=== PATIENT | female | born 1960 | race Caucasian/White ===

== ENCOUNTER 2018-04-11 16:52 | Emergency (ER) | payer OTHER ==
--- NOTE | 2018-04-11 17:58 | Emergency Department Record ---
History of Present Illness - General Chief complaint: Eye Problem Stated complaint: RT EYE SWELLING/IRRITATION Time Seen by Provider: 04/11/18 17:45 Source: Patient, Family Mode of Arrival: Ambulatory Limitations: No limitations - History of Present Illness Initial comments: 57 yo female presents with a right eye lid pain and swelling. This has been gradually building for about a week. She now has a tender nodule that is fluctuant mid upper lid with visible pus just under the surface. No vision changes. No fever. 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 No pain with eye movement. She has been doing warm compresses but the area has not drained. MD chief complaint: Eye pain, Eye redness Onset/Timin -: Days(s) Onset Description: Sudden Location: Right eye Place: Home If Injury: None Eye Symptoms: Blurry vision, Foreign body sensation, Pain, Redness Severity: Mild Severity scale (1-10): 3 If Pain, Quality: Aching Consistency: Constant Associated Symptoms: None Treatments Prior to Arrival: None - Related Data Visual acuity (L) = 20/: 40 Visual acuity (R) = 20/: 50 With correction: No Previous Rx's Medication Instructions Recorded Albuterol Sulfate [Proair Hfa] 1 - 2 puff IH .EVERY 4-6 HOURS PRN 07/23/16 #1 inhaler Furosemide [Lasix] 20 mg PO DAILY #30 tablet 07/23/16 Ipratropium/Albuterol [Duoneb] 3 ml IH Q4H #30 ampul.neb 07/23/16 Lisinopril [Zestril] 2.5 mg PO DAILY #30 tablet 07/23/16 Cephalexin [Keflex] 500 mg PO QID #40 cap 04/11/18 Hydrocodone/APAP 5/325Mg [[place] 1 each PO Q8H #9 tab 04/11/18 5Mg/325Mg] Sulfamethoxazole/Trimethoprim 1 each PO BID #14 tablet 04/11/18 [Bactrim Ds Tablet] Allergies Allergy/AdvReac Type Severity Reaction Status Date / Time codeine [CODEINE] Allergy Unknown PT UNSURE Verified 04/11/18 17:17 OF REACTION codeine phosphate Allergy Unknown PT UNSURE Verified 04/11/18 17:17 [From TYLENOL-CODEINE] OF REACTION latex [LATEX] Allergy Unknown PT UNSURE Verified 04/11/18 17:17 OF REACTION methylprednisolone sodium AdvReac Unknown burning Verified 04/11/18 17:17 succinate feeling in [From SOLU-MEDROL] legs Travel Screening - Travel/Exposure Within Last 30 Days Have you traveled within the last 30 days?: No Review of Systems Constitutional: Denies: Chills, Fever, Malaise, Weakness Eyes: Reports: Eye pain. Denies: Eye discharge, Photophobia, Vision change ENT: Denies: Congestion, Throat pain Respiratory: Denies: Cough Cardiovascular: Denies: Chest pain, Syncope Endocrine: Denies: Fatigue Gastrointestinal: Denies: Abdominal pain, Diarrhea, Nausea, Vomiting Genitourinary: Denies: Dysuria, Urgency Musculoskeletal: Denies: Arthralgia, Back pain, Myalgia Skin: Reports: As per HPI, Rash. Denies: Bruising, Change in color Neurological: Denies: Headache Psychiatric: Denies: Anxiety Hematological/Lymphatic: Denies: Easy bleeding, Easy bruising Past Medical History - SOCIAL HISTORY Smoking Status: Current every day smoker Alcohol Use: None Drug Use: None - RESPIRATORY Hx Respiratory Disorders: Yes Hx Asthma: Yes Hx Bronchitis: Yes Hx COPD: Yes Hx Dyspnea: Yes Hx Pneumonia: Yes - CARDIOVASCULAR Hx Cardio Disorders: No - NEURO Hx Neuro Disorders: No - GI Hx GI Disorders: No - Hx Genitourinary Disorders: No - ENDOCRINE Hx Endocrine Disorders: No - MUSCULOSKELETAL Hx Musculoskeletal Disorders: Yes - PSYCH Hx Psych Problems: Yes Hx Anxiety: Yes Hx Depression: Yes - HEMATOLOGY/ONCOLOGY Hx Hematology/Oncology Disorders: Yes Hx Cancer: Yes (Uterine) Family Medical History Any Significant Family History?: Yes Hx Cancer: Grandparents Hx Diabetes: Mother Hx HTN: Mother, Grandparents Physical Exam - General General Appearance: Alert, Oriented x3, Cooperative, No acute distress Limitations: No limitations - Head Head exam: Normal inspection Image of Face/Head: 1 - mild upper lid erythema with a central stye that appears to have come to a head - Eye Eye exam: PERRL, EOMI, Periorbital swelling, Periorbital tenderness (upper lid) . negative: Normal appearance, Conjunctival injection With correction: No Image of Eyes: 1 - upper lid tender fluctuant area - ENT ENT exam: Normal exam Ear exam: Normal external inspection Nasal Exam: Normal inspection Mouth exam: Normal external inspection - Neck Neck exam: Normal inspection - Rectal Rectal exam: Deferred - exam: Deferred - Neurological Neurological exam: Alert, Normal gait, Oriented X3. negative: Altered - Psychiatric Psychiatric exam: Normal affect, Normal mood - Skin Skin exam: Erythema Course Vital Signs 04/11/18 17:08 Temperature 97.8 F Pulse Rate 107 H Respiratory 20 Rate Blood Pressure 91/82 Pulse Ox 97 - Reevaluation(s) Reevaluation #1: The examination is consistent with a stye very near rupture. Pus can be visualized as the stye is coming to a head but it has not yet fully ruptured. I recommended cleaning, gently open with 11 blade and culture the pus. She agrees and requests drainage. Prep with Betadine 11 Blade 1-2mm very superficial incision with immediate drainage It was easily pressured until cleared of pus and only blood. Culture obtained Tolerated well PO and topical antibiotics provided. She was instructed to continue the draining if possible. We discussed home care and reasons to return to the ED 04/11/18 18:10 Disposition Disposition: Discharge Clinical Impression: Stye Disposition: Home, Self-Care Condition: (1) Good Instructions: Jonnie (ED) Additional Instructions: Continue warm compresses every 12 hours Try to continue the drainage Be seen if fever, worse or any new concerns Take the antibiotics as prescribed Clean the lid daily as well. Call your doctor tomorrow for a recheck this week Prescriptions: Cephalexin [Keflex] 500 mg PO QID #40 cap Hydrocodone/APAP 5/325Mg [[place] 5Mg/325Mg] 1 each PO Q8H #9 tab Sulfamethoxazole/Trimethoprim [Bactrim Ds Tablet] 1 each PO BID #14 tablet Forms: Patient Portal Access Time of Disposition: 18:14 Quality - Quality Measures Quality Measures: N/A - Blood Pressure Screening Does Patient Have Any of the Following: Active Dx of HTN Blood Pressure Classification: Pre-Hypertensive BP Reading Systolic Measurement: 91 Diastolic Measurement: 82 Screening for High Blood Pressure: Patient Exclusion, Hx of HTN [G9744] Pre-Hypertensive Follow-up Interventions: Referral to alternative/primary care provider.
[2018-04-11] MEDS: POLYMYXIN B SULF/TRIMETHOPRIM 10ML BTL OPTH ONE (18:15)
[2018-04-11] MEDS: HYDROCODONE/APAP 5/325MG TABLET PO ONE (18:16)
[2018-04-11] MEDS: TMP/SMZ 160MG/800MG TAB PO ONE (18:16)
[2018-04-11] MEDS: CEFTRIAXONE 1 GRAM VIAL IM ONE (18:16)
[2018-04-11] MEDS: PROPARACAINE HCL OPTH 15ML BTL OPTH ONE (18:16)
== END 2018-04-11 18:52 | disposition home or self-care (01) ==
LOC: ER 16:52
DX: H00.024 Hordeolum internum left upper eyelid (principal); F17.210 Nicotine dependence, cigarettes, uncomplicated
CPT/HCPCS: 67700; 96372; 99283

== ENCOUNTER 2019-10-27 19:14 | Inpatient (IN) | payer BC ==
--- NOTE | 2019-10-27 19:34 | Emergency Department Record ---
History of Present Illness - General Chief Complaint: Abdominal Pain Stated Complaint: ABD PAINS Time Seen by Provider: 10/27/19 19:33 Source: Patient Mode of Arrival: Ambulatory Limitations: No limitations - History of Present Illness Initial Comments: 59 yo female presents with abdominal pain for about the last 6 months. She reports it seemed to have worsened about 3 months ago and then again a month ago. She has had a month of diarrhea. She has pain over the entire abdomen. No fever. She has nausea. She has vomited but rarely. The diarrhea is non bloody. She did see her doctor and was told it was diverticulitis. PCP is Dr Anaid RODARTE Complaint: Abdominal pain Location: Diffuse Radiation: Other (Diffuse) Migration to: Other (Diffuse) Quality: Aching, Sharp Consistency: Constant Improves With: Nothing Worsens With: Eating Context: Other Associated Symptoms: Anorexia, Diarrhea, Vomiting (rarely) - Related Data Previous Rx's Medication Instructions Recorded Albuterol Sulfate [Proair Hfa] 1 - 2 puff IH .EVERY 4-6 HOURS PRN 07/23/16 #1 inhaler Furosemide [Lasix] 20 mg PO DAILY #30 tablet 07/23/16 Ipratropium/Albuterol [Duoneb] 3 ml IH Q4H #30 ampul.neb 07/23/16 Lisinopril [Zestril] 2.5 mg PO DAILY #30 tablet 07/23/16 Ciprofloxacin HCl [Cipro] 500 mg PO Q12HR #14 tablet 10/27/19 Hydrocodone/Acetaminophen [[place] 1 each PO Q6H #8 tablet 10/27/19 5-325 Tablet] Metronidazole [Flagyl] 500 mg PO Q8H #30 tablet 10/27/19 Allergies Allergy/AdvReac Type Severity Reaction Status Date / Time codeine [CODEINE] Allergy Unknown PT UNSURE Verified 10/27/19 19:39 OF REACTION codeine phosphate Allergy Unknown PT UNSURE Verified 10/27/19 19:39 [From TYLENOL-CODEINE] OF REACTION latex [LATEX] Allergy Unknown PT UNSURE Verified 10/27/19 19:39 OF REACTION methylprednisolone sodium AdvReac Unknown burning Verified 10/27/19 19:39 succinate feeling in [From SOLU-MEDROL] legs Review of Systems Constitutional: Denies: Chills, Fever, Malaise, Weakness Eyes: Denies: Eye discharge ENT: Denies: Congestion, Throat pain Respiratory: Denies: Cough, Dyspnea, Hemoptysis, Wheezes Cardiovascular: Denies: Chest pain, Palpitations, Syncope Endocrine: Denies: Fatigue Gastrointestinal: Reports: Abdominal pain, Diarrhea, Nausea, Vomiting. Denies: Constipation, Hematemesis, Hematochezia, Melena Genitourinary: Denies: Dysuria, Urgency Musculoskeletal: Denies: Arthralgia, Back pain, Myalgia Skin: Denies: Bruising, Change in color, Rash Neurological: Denies: Headache Psychiatric: Denies: Anxiety Hematological/Lymphatic: Denies: Easy bleeding, Easy bruising Past Medical History - SOCIAL HISTORY Smoking Status: Current every day smoker Drug Use: None - RESPIRATORY Hx Respiratory Disorders: Yes Hx Asthma: Yes Hx Bronchitis: Yes Hx COPD: Yes Hx Dyspnea: Yes Hx Pneumonia: Yes - CARDIOVASCULAR Hx Cardio Disorders: No - NEURO Hx Neuro Disorders: No - GI Hx GI Disorders: No - Hx Genitourinary Disorders: No - ENDOCRINE Hx Endocrine Disorders: No - MUSCULOSKELETAL Hx Musculoskeletal Disorders: Yes - PSYCH Hx Psych Problems: Yes Hx Anxiety: Yes Hx Depression: Yes - HEMATOLOGY/ONCOLOGY Hx Hematology/Oncology Disorders: Yes Hx Cancer: Yes (Uterine) Family Medical History Hx Cancer: Grandparents Hx Diabetes: Mother Hx HTN: Mother, Grandparents Physical Exam - General General Appearance: Alert, Oriented x3, Cooperative, No acute distress Limitations: No limitations - Head Head exam: Atraumatic, Normal inspection - Eye Eye exam: Normal appearance, PERRL. negative: Conjunctival injection, Scleral icterus - ENT ENT exam: Normal exam, Mucous membranes moist Ear exam: Normal external inspection Nasal Exam: Normal inspection Mouth exam: Normal external inspection - Neck Neck exam: Normal inspection - Respiratory Respiratory exam: Normal lung sounds bilaterally. negative: Respiratory distress - Cardiovascular Cardiovascular Exam: Regular rate, Normal rhythm, Normal heart sounds - GI/Abdominal GI/Abdominal exam: Soft, Normal bowel sounds, Tenderness, Other (The abdomen is obese but very soft, she has some diffuse non specific tenderness). negative: Distended, Guarding, Rebound, Rigid - Rectal Rectal exam: Deferred - exam: Deferred - Extremities Extremities exam: Normal inspection. negative: Pedal edema, Tenderness - Back Back exam: Denies: CVA tenderness (R), CVA tenderness (L) - Neurological Neurological exam: Alert, Oriented X3 - Psychiatric Psychiatric exam: Normal affect, Normal mood - Skin Skin exam: Dry, Intact, Normal color, Warm Course - Reevaluation(s) Reevaluation #1: 10/27/19 20:49 The CBC was reviewed No acute changes The CMP demonstrated CR of 1.2 and Glucose of 249. 10/27/19 21:[address] was reviewed with the patient. She has mild diverticulitis of the sigmoid without and abscess or other complications. She is afebrile, normal labs, but she is vomiting and not tolerating oral treatment. She will be admitted for IVF and medications. Medical Decision Making - Lab Data Result diagrams: 10/27/19 19:55 10/27/19 19:55 Disposition Disposition: Admit Clinical Impression: Diverticulitis Diarrhea Qualifiers: Diarrhea type: unspecified type Qualified Code(s): R19.7 - Diarrhea, unspecified Abdominal pain Qualifiers: Abdominal location: unspecified location Qualified Code(s): R10.9 - Unspecified abdominal pain Disposition: Home, Self-Care Decision to Admit: Admit from ER Decision to Admit Date: 10/27/19 Decision to Admit Time: 22:09 Condition: (2) Stable Instructions: Diverticulitis (ED) Additional Instructions: Review this ER visit and the tests performed with your family doctor Call your doctor for the next available follow up appointment Return to the ER for a recheck immediately if worse, any new concerns or questions Take the prescriptions provided as directed Prescriptions: Ciprofloxacin HCl [Cipro] 500 mg PO Q12HR #14 tablet Metronidazole [Flagyl] 500 mg PO Q8H #30 tablet Hydrocodone/Acetaminophen [[place] 5-325 Tablet] 1 each PO Q6H #8 tablet Forms: Patient Portal Access Time of Disposition: 21:51 Quality - Quality Measures Quality Measures: N/A - Blood Pressure Screening Does Patient Have Any of the Following: Active Dx of HTN Blood Pressure Classification: Pre-Hypertensive BP Reading Systolic Measurement: 117 Diastolic Measurement: 80 Screening for High Blood Pressure: Patient Exclusion, Hx of HTN [G9744] Pre-Hypertensive Follow-up Interventions: Referral to alternative/primary care provider.
[2019-10-27] MEDS ORDERED: MORPHINE SULFATE 5 MG/ML VIAL IVP ONE (19:45)
[2019-10-27] MEDS ORDERED: 0.9 % SODIUM CHLORIDE 1,000 ML BAG IV ONE (19:45)
[2019-10-27] MEDS ORDERED: ACETAMINOPHEN 1,000 MG/100 ML BTL IVPB ONE (19:45)
[2019-10-27] MEDS ORDERED: ONDANSETRON HCL IV 4 MG/2 ML VIAL IVP ONE ×2 (19:45→21:59)
[2019-10-27 20:12] LABS: ABSOLUTE NEUTROPHIL COUNT 6.76; BASO % 0.1 % (0-6); EOS % 2.4 % (0-6); GRAN % 68.9 % (47-80); HEMATOCRIT 43.5 % (35.0-47.0); HEMOGLOBIN 13.4 gm/dl (11.6-16.0); LYMPH % 21.6 % (16-45); MEAN CELL VOLUME 82.4 fl (81-97); MEAN CORPUSCULAR HEMOGLOBIN 25.4 pg (27-33); MEAN CORPUSCULAR HGB CONC 30.8 g/dl (32-36); MEAN PLATELET VOLUME 9.5 fl (7.4-10.4); PLATELET COUNT 366 K/uL (130-400); RED BLOOD COUNT 5.28 M/uL (3.80-5.40); RED CELL DISTRIBUTION WIDTH 18.3 % (11.5-14.5); WHITE BLOOD COUNT W/O DIFF 9.8 K/uL (4.2-12.2)
[2019-10-27 20:22] LABS: BILIRUBIN,TOTAL < 0.20 mg/dL (0.2-1.0); BLOOD UREA NITROGEN 19 mg/dL (6-20); CREATININE 1.2 mg/dL (0.5-0.9); EST GLOMERULAR FILTRATION RATE 49 mL/min
[2019-10-27 20:23] LABS: LIPASE 17 U/L (13-60)
[2019-10-27 20:25] LABS: GLUCOSE,RANDOM 239 mg/dL (74-109)
[2019-10-27 20:27] LABS: ALT/SGPT 30 U/L (<33); AST/SGOT 24 U/L (10.0-35.0)
[2019-10-27 20:28] LABS: ALB/GLOB RATIO 1.2 (1.1-1.8); ALBUMIN 3.8 g/dL (4.0-5.0); ALKALINE PHOSPHATASE 87 U/L (35-104)
--- NOTE | 2019-10-27 21:38 | CT SCAN REPORT ---
EXAMINATION: CT Abdomen and Pelvis with IV Contrast EXAM DATE: 10/27/2019 8:55 PM TECHNIQUE: CT imaging of the abdomen and pelvis was performed with intravenous contrast. Coronal and sagittal images were reconstructed. IV Contrast: The amount and type of contrast are recorded in the medical record. INDICATION: continued abd pain, hx of diverticulitis COMPARISON: CT abdomen/pelvis September 27, 2019 ENCOUNTER: Not applicable CT ABDOMEN AND PELVIS FINDINGS: Lung Bases: Mild dependent atelectasis. Hepatobiliary: Liver is mildly decreased attenuation diffusely consistent with fatty infiltration. No suspicious liver lesion. The gallbladder has been removed. Surgical clips are seen in the gallbladd er fossa. Pancreas: The pancreas is normal. Spleen: The spleen is not enlarged. Adrenals: The adrenal glands are normal. Kidneys, Ureters, & Bladder: Both kidneys have a normal size and there is no hydronephrosis. Both ur eters have a normal caliber. The urinary bladder is underdistended. Gastrointestinal: The stomach and small bowel are normal with no obstruction or inflammation. The solo endix is not well seen. No evidence of acute appendicitis. Mild to moderate sigmoid diverticulosis w ith mild adjacent strandy inflammation, and sigmoid wall thickening about the proximal sigmoid colon consistent with acute diverticulitis. There is no evidence of abscess. Reproductive Organs: Unremarkable Lymphatic System: There is no adenopathy within the abdomen or pelvis. Vasculature: Normal caliber abdominal aorta. The mesenteric vessels appear unremarkable. Peritoneum: No free fluid, free air, or inflammation Abdominal Wall & Musculoskeletal: No suspicious bone lesions. IMPRESSION: 1. Mild to moderate diverticulosis in the proximal sigmoid colon with wall thickening and mild surrou nding inflammation most consistent with acute diverticulitis. 2. Recommend clinical correlation with appropriate follow-up to exclude other etiologies for wall thi ckening such as neoplasm. 3. No evidence of abscess. Dictated by: Malachi Alvarado MD on 10/27/2019 9:20 PM. .
[2019-10-27] MEDS ORDERED: HYDROCODONE/APAP 5/325MG TABLET PO ONE (21:45)
[2019-10-27] MEDS ORDERED: METRONIDAZOLE 250 MG TABLET PO ONE (21:45)
[2019-10-27] MEDS ORDERED: CIPROFLOXACIN HCL 500 MG TABLET PO ONE (21:45)
[2019-10-27 22:43] LABS: URINE APPEARANCE CLEAR; URINE BILIRUBIN NEGATIVE (NEGATIVE); URINE BLOOD NEGATIVE (NEGATIVE); URINE COLOR YELLOW; URINE GLUCOSE (UA) NEGATIVE (NEGATIVE); URINE KETONE NEGATIVE (NEGATIVE); URINE LEUKOCYTE ESTERASE NEGATIVE (NEGATIVE); URINE NITRITE NEGATIVE (NEGATIVE); URINE PROTEIN NEGATIVE (NEGATIVE); URINE UROBILINOGEN 0.2 E.U./dL (0.20 - 1.00)
[2019-10-27] MEDS ORDERED: 0.9 % SODIUM CHLORIDE 1000ML 1,000 ML IV ONE (22:53)
[2019-10-27] MEDS ORDERED: IPRATROPIUM/ALBUTEROL (0.5MG/3MG) NEB INH PRN (22:53)
[2019-10-27] MEDS ORDERED: MORPHINE SULFATE 5 MG/ML VIAL IVP PRN (22:53)
[2019-10-27] MEDS ORDERED: ALBUTEROL HFA 8 GM INHALER INH PRN ×2 (22:53→23:20)
[2019-10-27] MEDS ORDERED: ONDANSETRON HCL IV 4 MG/2 ML VIAL IVP PRN (22:53)
[2019-10-27] MEDS: CIPROFLOXACIN LACTATE/D5W 400 MG/200 ML BAG IVPB SCH (23:24)
[2019-10-28] MEDS: ACETAMINOPHEN 325 MG TAB PO PRN ×3 (00:28→22:24)
[2019-10-28] MEDS: METRONIDAZOLE IVPB 500 MG/100 ML BAG IVPB SCH ×4 (00:30→23:43)
--- NOTE | 2019-10-28 08:33 | History & Physical ---
History of Present Illness - Date of Service Date of Service for History & Physical: 10/29/19 - History of Present Illness Admitting Diagnosis: Acute sigmoid diverticulitis with vomiting History of Present Illness: 59 yo female presents with abdominal pain for about the last 6 months. She reports it seemed to have worsened about 3 months ago and then again a month ago. She has had a month of diarrhea. She has pain over the entire abdomen. No fever. She has nausea. She has vomited but rarely. The diarrhea is non bloody. She did see her doctor and was told it was diverticulitis and was treated with oral antibiotics on 2 different occasions over the last 3 weeks. She went to her PCP office today to reeval of unresolved diarrhea and abdominal pain, she was advised to go to ER for possible IV antibiotics. She has never had a colonoscopy and reports her PCP wanted her to schedule one due to chronic GI symptoms. CT abdomen/pelvis showed mild sigmoid diverticulitis and was a good candidate for outpatient antibiotic treatment, just before discharge from ED she began vomiting and unable to tolerate PO intake. She will be admitted for IV a ntibiotics, antiemetics and clear liquid diet until she is able to tolerate PO intake, then plan for discharge home for the remainder of PO treatment regimen PCP: Dr Worrell PAST MEDICAL/SURGICAL HISTORY Past Surgical History gallbladder hysterectomy appendectomy PMH - Respiratory Hx Respiratory Disorders Yes Hx Asthma Yes Hx Bronchitis Yes Hx Chronic Obstructive Yes Pulmonary Disease (COPD) Hx Dyspnea Yes Hx Pneumonia Yes PMH - Cardiovascular Hx Cardiovascular Disorders No Hx Hypertension Yes PMH - Neuro Hx Neurological Disorders No PMH - GI Hx Gastrointestinal Disorders No Hx Abdominal Pain Yes Hx Diverticulitis Yes PMH - Hx Genitourinary Disorders No LMP (females 10-50) Unknown Patient No PMH - Endocrine Hx Endocrine Disorders No PMH - Musculoskeletal Hx Musculoskeletal Disorders Yes PMH - Psych Hx Psychiatric Problems Yes Hx Anxiety Yes Hx Depression Yes PMH - Hematology/Oncology Hx Hematology/Oncology Yes Disorders Hx Cancer Yes: Uterine Laboratory Results WBC 9.8 K/uL (4.2-12.2) 10/27/19 19:55 RBC 5.28 M/uL (3.80-5.40) 10/27/19 19:55 Hgb 13.4 gm/dl (11.6-16.0) 10/27/19 19:55 Hct 43.5 % (35.0-47.0) 10/27/19 19:55 MCV 82.4 fl (81-97) 10/27/19 19:55 MCH 25.4 pg (27-33) L 10/27/19 19:55 MCHC 30.8 g/dl (32-36) L 10/27/19 19:55 RDW 18.3 % (11.5-14.5) H 10/27/19 19:55 Plt Count 366 K/uL (130-400) 10/27/19 19:55 MPV 9.5 fl (7.4-10.4) 10/27/19 19:55 Gran % 68.9 % (47-80) 10/27/19 19:55 Lymphocytes % 21.6 % (16-45) 10/27/19 19:55 Monocytes % 7.0 % (0-9) 10/27/19 19:55 Eosinophils % 2.4 % (0-6) 10/27/19 19:55 Basophils % 0.1 % (0-6) 10/27/19 19:55 Absolute Neutrophils 6.76 10/27/19 19:55 Sodium 141 mmol/L (136-145) 10/27/19 19:55 Potassium 3.9 mmol/L (3.4-4.5) 10/27/19 19:55 Chloride 101 mmol/L (98-107) 10/27/19 19:55 Carbon Dioxide 25.0 mmol/L (22-29) 10/27/19 19:55 Anion Gap 15.0 (7-16) 10/27/19 19:55 BUN 19 mg/dL (6-20) 10/27/19 19:55 Creatinine 1.2 mg/dL (0.5-0.9) H 10/27/19 19:55 Estimated GFR 49 mL/min 10/27/19 19:55 Random Glucose 239 mg/dL (74-109) H 10/27/19 19:55 Calcium 9.1 mg/dL (8.6-10.0) 10/27/19 19:55 Total Bilirubin < 0.20 mg/dL (0.2-1.0) L 10/27/19 19:55 AST 24 U/L (10.0-35.0) 10/27/19 19:55 ALT 30 U/L (<33) 10/27/19 19:55 Alkaline Phosphatase 87 U/L (35-104) 10/27/19 19:55 Total Protein 7.0 g/dL (6.6-8.7) 10/27/19 19:55 Albumin 3.8 g/dL (4.0-5.0) L 10/27/19 19:55 Globulin 3.2 gm/dL (1.4-4.8) 10/27/19 19:55 Albumin/Globulin Ratio 1.2 (1.1-1.8) 10/27/19 19:55 Lipase 17 U/L (13-60) 10/27/19 19:55 Urine Color Yellow 10/27/19 22:34 Urine Appearance Clear 10/27/19 22:34 Urine pH 5.5 (5.0-8.0) 10/27/19 22:34 Ur Specific [place] 1.010 (1.002-1.030) 10/27/19 22:34 Urine Protein Negative (NEGATIVE) 10/27/19 22:34 Urine Glucose (UA) Negative (NEGATIVE) 10/27/19 22:34 Urine Ketones Negative (NEGATIVE) 10/27/19 22:34 Urine Blood Negative (NEGATIVE) 10/27/19 22:34 Urine Nitrite Negative (NEGATIVE) 10/27/19 22:34 Urine Bilirubin Negative (NEGATIVE) 10/27/19 22:34 Urine Urobilinogen 0.2 E.U./dL (0.20 - 1.00) 10/27/19 22:34 Ur Leukocyte Esterase Negative (NEGATIVE) 10/27/19 22:34 Stool Occult Blood Cancelled 10/27/19 22:34 Stool for White Cells Cancelled 10/27/19 20:00 Rotavirus Antigen Cancelled 10/27/19 19:40 Stl C.difficile Tox A&B Cancelled 10/27/19 19:40 Cryptosporid parvum Ag Cancelled 10/27/19 19:40 Giardia lamblia Ag Cancelled 10/27/19 19:40 Vital Signs - Last 24 Hrs Temp Pulse Pulse Resp BP BP BP 10/28/19 06:24 97.7 F 86 16 141/48 10/27/19 22:53 97.8 F 87 20 148/89 10/27/19 21:55 95 H 18 126/79 10/27/19 19:40 98.3 F 111 H 24 117/80 Pulse Ox 10/28/19 06:24 96 10/27/19 22:53 94 L 10/27/19 21:55 94 L 10/27/19 19:40 95 Travel Screening - Travel/Exposure Within Last 30 Days Have you traveled within the last 30 days?: No - Travel/Exposure Within Last Year Have you traveled outside the [place] in the last year?: No - Additonal Travel Details Have you been exposed to anyone with a communicable illness?: No - Travel Symptoms Symptom Screening: Diarrhea, Vomiting, Stomach Pain Review of Systems Constitutional: Denies: Chills, Fever, Malaise, Weakness Eyes: Denies: Eye discharge ENT: Denies: Congestion, Throat pain Respiratory: Denies: Cough, Dyspnea, Hemoptysis, Wheezes Cardiovascular: Denies: Chest pain, Palpitations, Syncope Endocrine: Denies: Fatigue Gastrointestinal: Reports: Abdominal pain, Diarrhea, Nausea, Vomiting. Denies: Constipation, Hematemesis, Hematochezia, Melena Genitourinary: Denies: Dysuria, Urgency Musculoskeletal: Denies: Arthralgia, Back pain, Myalgia Skin: Denies: Bruising, Change in color, Rash Neurological: Denies: Headache Psychiatric: Denies: Anxiety Hematological/Lymphatic: Denies: Easy bleeding, Easy bruising Past Medical History - SOCIAL HISTORY Smoking Status: Current every day smoker Alcohol Use: None Drug Use: Occasional Drug Use Detail:: Marijuana - RESPIRATORY Hx Respiratory Disorders: Yes Hx Asthma: Yes Hx Bronchitis: Yes Hx COPD: Yes Hx Dyspnea: Yes Hx Pneumonia: Yes - CARDIOVASCULAR Hx Cardio Disorders: No Hx Hypertension: Yes - NEURO Hx Neuro Disorders: No - GI Hx GI Disorders: No Hx Abdominal Pain: Yes Hx Diverticulitis: Yes - Hx Genitourinary Disorders: No - ENDOCRINE Hx Endocrine Disorders: No - MUSCULOSKELETAL Hx Musculoskeletal Disorders: Yes - PSYCH Hx Psych Problems: Yes Hx Anxiety: Yes Hx Depression: Yes - HEMATOLOGY/ONCOLOGY Hx Hematology/Oncology Disorders: Yes Hx Cancer: Yes (Uterine) Family Medical History Any Significant Family History?: Yes Hx Cancer: Grandparents Hx Diabetes: Mother Hx HTN: Mother, Grandparents H&P Meds/Allergies - Allergies Allergies: Allergies Allergy/AdvReac Type Severity Reaction Status Date / Time codeine [CODEINE] Allergy Unknown PT UNSURE Verified 10/27/19 19:39 OF REACTION codeine phosphate Allergy Unknown PT UNSURE Verified 10/27/19 19:39 [From TYLENOL-CODEINE] OF REACTION latex [LATEX] Allergy Unknown PT UNSURE Verified 10/27/19 19:39 OF REACTION methylprednisolone sodium AdvReac Unknown burning Verified 10/27/19 19:39 succinate feeling in [From SOLU-MEDROL] legs - Home Medications Previous Rx's Medication Instructions Recorded Albuterol Sulfate [Proair Hfa] 1 - 2 puff IH .EVERY 4-6 HOURS PRN 07/23/16 #1 inhaler Furosemide [Lasix] 20 mg PO DAILY #30 tablet 07/23/16 Ipratropium/Albuterol [Duoneb] 3 ml IH Q4H #30 ampul.neb 07/23/16 Lisinopril [Zestril] 2.5 mg PO DAILY #30 tablet 07/23/16 Ciprofloxacin HCl [Cipro] 500 mg PO Q12HR #14 tablet 10/27/19 Hydrocodone/Acetaminophen [[place] 1 each PO Q6H #8 tablet 10/27/19 5-325 Tablet] Metronidazole [Flagyl] 500 mg PO Q8H #30 tablet 10/27/19 - Active Medications Active Medications: Current Medications Acetaminophen (Tylenol 325mg) 650 mg PO Q6H PRN PRN Reason: PAIN - MILD(1-4)/FEVER Last Admin: 10/28/19 00:28 Dose: 650 mg Documented by: Albuterol Sulfate (Ventolin Hfa) 1 puff INH Q4H PRN PRN Reason: DIFFICULTY IN BREATHING Albuterol Sulfate (Ventolin Hfa) 2 puff INH Q4H PRN PRN Reason: DIFFICULTY IN BREATHING Albuterol/Ipratropium (Duoneb) 3 ml INH Q4H PRN PRN Reason: WHEEZING Ciprofloxacin Lactate (Cipro) 400 mg in 200 mls @ 200 mls/hr IVPB Q12H [facility] Stop: 11/02/19 21:01 Last Infusion: 10/28/19 00:30 Dose: Infused Documented by: Metronidazole/Sodium Chloride (Flagyl) 500 mg in 100 mls @ 100 mls/hr IVPB 0000,0800,1600 [facility] Stop: 11/02/19 00:31 Last Admin: 10/28/19 08:19 Dose: 100 mls/hr Documented by: Lisinopril (Zestril) 2.5 mg PO DAILY [facility] Metoprolol Succinate (Toprol Xl) 25 mg PO DAILY [facility] Morphine Sulfate (Morphine Sulfate) 5 mg IVP Q8H PRN PRN Reason: PAIN - MILD (1-4) Stop: 11/03/19 22:54 Ondansetron HCl (Zofran) 4 mg IVP Q4H PRN PRN Reason: NAUSEA Physical Exam - Vital Signs Vital Signs: Vital Signs - Last 24 Hrs Temp Pulse Pulse Resp BP BP BP 10/28/19 06:24 97.7 F 86 16 141/48 10/27/19 22:53 97.8 F 87 20 148/89 10/27/19 21:55 95 H 18 126/79 10/27/19 19:40 98.3 F 111 H 24 117/80 Pulse Ox 10/28/19 06:24 96 10/27/19 22:53 94 L 10/27/19 21:55 94 L 10/27/19 19:40 95 - General General Appearance: Alert, Oriented x3, Cooperative, No acute distress Limitations: No limitations - Head Head exam: Atraumatic, Normal inspection - Eye Eye exam: Normal appearance, PERRL. negative: Conjunctival injection, Scleral icterus - ENT ENT exam: Normal exam, Mucous membranes moist Ear exam: Normal external inspection Nasal Exam: Normal inspection Mouth exam: Normal external inspection - Neck Neck exam: Normal inspection - Respiratory Respiratory exam: Normal lung sounds bilaterally. negative: Respiratory distress - Cardiovascular Cardiovascular Exam: Regular rate, Normal rhythm, Normal heart sounds - GI/Abdominal GI/Abdominal exam: Soft, Normal bowel sounds (mild tympany over RLQ), Tenderness (RLQ), Other (The abdomen is obese but very soft). negative: Distended, Guarding, Rebound, Rigid - Rectal Rectal exam: Deferred - exam: Deferred - Extremities Extremities exam: Normal inspection. negative: Pedal edema, Tenderness - Back Back exam: Denies: CVA tenderness (R), CVA tenderness (L) - Neurological Neurological exam: Alert, Oriented X3 - Psychiatric Psychiatric exam: Normal affect, Normal mood - Skin Skin exam: Dry, Intact, Normal color, Warm Results - Labs Result Diagrams: 10/27/19 19:55 12/27/19 19:55 Labs Last 24 Hours: Laboratory Results - last 24 hr 10/27/19 10/27/19 10/27/19 19:40 19:55 19:55 WBC 9.8 RBC 5.28 Hgb 13.4 Hct 43.5 MCV 82.4 MCH 25.4 L MCHC 30.8 L RDW 18.3 H Plt Count 366 MPV 9.5 Gran % 68.9 Lymphocytes % 21.6 Monocytes % 7.0 Eosinophils % 2.4 Basophils % 0.1 Absolute Neutrophils 6.76 Sodium 141 Potassium 3.9 Chloride 101 Carbon Dioxide 25.0 Anion Gap 15.0 BUN 19 Creatinine 1.2 H Estimated GFR 49 Random Glucose 239 H Calcium 9.1 Total Bilirubin < 0.20 L AST 24 ALT 30 Alkaline Phosphatase 87 Total Protein 7.0 Albumin 3.8 L Globulin 3.2 Albumin/Globulin Ratio 1.2 Lipase 17 Urine Color Urine Appearance Urine pH Ur Specific [place] Urine Protein Urine Glucose (UA) Urine Ketones Urine Blood Urine Nitrite Urine Bilirubin Urine Urobilinogen Ur Leukocyte Esterase Stool Occult Blood Stool for White Cells Cancelled Rotavirus Antigen Cancelled Stl C.difficile Tox A&B Cancelled Cryptosporid parvum Ag Cancelled Giardia lamblia Ag Cancelled 10/27/19 10/27/19 10/27/19 20:00 22:00 22:34 WBC RBC Hgb Hct MCV MCH MCHC RDW Plt Count MPV Gran % Lymphocytes % Monocytes % Eosinophils % Basophils % Absolute Neutrophils Sodium Potassium Chloride Carbon Dioxide Anion Gap BUN Creatinine Estimated GFR Random Glucose Calcium Total Bilirubin AST ALT Alkaline Phosphatase Total Protein Albumin Globulin Albumin/Globulin Ratio Lipase Urine Color Yellow Urine Appearance Clear Urine pH 5.5 Ur Specific [place] 1.010 Urine Protein Negative Urine Glucose (UA) Negative Urine Ketones Negative Urine Blood Negative Urine Nitrite Negative Urine Bilirubin Negative Urine Urobilinogen 0.2 Ur Leukocyte Esterase Negative Stool Occult Blood Cancelled Cancelled Stool for White Cells Cancelled Rotavirus Antigen Stl C.difficile Tox A&B Cryptosporid parvum Ag Giardia lamblia Ag - Imaging and Cardiology CT scan - abdomen Status: Report reviewed VTE H&P Assessment - Risk for VTE Risk for VTE: Yes Risk Level: Moderate Risk Assessment Date: 10/28/19 Risk Assessment Time: 08:30 VTE Orders Placed or Will Be Placed: Yes Plan - Detailed Diagnosis and Plan (1) Diverticulitis Current Visit: Yes Status: Acute Base Code: K57.92 - DVTRCLI OF INTEST, PART UNSP, W/O PERF OR ABSCESS W/O BLEED Comment: 10/28/19 - CT abdomen/pelvis- mild signoid diverticulitis - Unable to tolerate PO antibiotic therapy in ED - Flagyl and Cipro IV until she is able to tolerate PO - Antiemetics and pain control - Clear liquid diet, advance to bland per patient request, nausea has improved - IV hydration - WIll need colonoscopy as outpatient (2) Vomiting Current Visit: Yes Status: Acute Qualifiers: Vomiting type: unspecified Base Code: R11.10 - VOMITING, UNSPECIFIED Comment: 10/28/19 - No vomiting since admit - Tolerating clear liquid diet, advance to bland (3) DVT prophylaxis Current Visit: Yes Status: Acute Base Code: [id number] - Comment: 10/28/19- Patient was at moderate risk for DVT with age and restricted mobility -lovenox 40mg SQ was given daily for prophylaxis (4) Full code status Current Visit: No Status: Acute Base Code: Z78.9 - OTHER SPECIFIED HEALTH STATUS
[2019-10-28] MEDS: METOPROLOL SUCC 25 MG TAB.ER PO SCH (10:08)
[2019-10-28] MEDS: ENOXAPARIN 40 MG/0.4 ML SYR SQ SCH (10:09)
[2019-10-28] MEDS: LISINOPRIL 5 MG TABLET PO SCH (10:09)
[2019-10-28] MEDS: 0.9 % SODIUM CHLORIDE 1000ML 1,000 ML IV PRN ×2 (10:13→16:45)
[2019-10-28] MEDS ORDERED: FLUCONAZOLE 100 MG TABLET PO ONE (12:39)
[2019-10-28 14:49] LABS: CRYPTOSPORIDIUM PARVUM ANTIGEN NOT DETECTED (NOT DETECT)
[2019-10-28] MEDS: KETOROLAC 30 MG/ML VIAL IVP PRN (16:42)
[2019-10-28] MEDS: CIPROFLOXACIN LACTATE/D5W 400 MG/200 ML BAG IVPB SCH (20:07)
[2019-10-28 20:11] LABS: MOLECULAR C DIFF TOXIN SCREEN NOT DETECTED (NOT DETECT)
[2019-10-29] MEDS: KETOROLAC 30 MG/ML VIAL IVP PRN ×3 (00:59→20:37)
[2019-10-29] MEDS: 0.9 % SODIUM CHLORIDE 1000ML 1,000 ML IV PRN (03:46)
[2019-10-29] MEDS: METRONIDAZOLE IVPB 500 MG/100 ML BAG IVPB SCH ×2 (08:27→16:42)
[2019-10-29] MEDS: CIPROFLOXACIN LACTATE/D5W 400 MG/200 ML BAG IVPB SCH ×2 (10:59→20:33)
[2019-10-29] MEDS: ENOXAPARIN 40 MG/0.4 ML SYR SQ SCH (10:59)
[2019-10-29] MEDS: METOPROLOL SUCC 25 MG TAB.ER PO SCH (11:00)
[2019-10-29] MEDS: LISINOPRIL 5 MG TABLET PO SCH (11:00)
[2019-10-29] MEDS: FUROSEMIDE 20 MG TABLET PO SCH (12:21)
[2019-10-29] MEDS ORDERED: FUROSEMIDE 20 MG TABLET PO ONE (16:00)
--- NOTE | 2019-10-29 20:09 | Physician Progress Note ---
Subjective - Date Date of Physician Progress Note: 10/29/19 - Subjective Subjective Comment: Patient reports she is tolerating the bland diet without any worsening of nausea, no vomiting. Is still having loose stools. RLQ abdominal pain slightly improved. Objective - Vital Signs Vital Signs: Vital Signs - Last 24 Hrs Temp Pulse Resp BP Pulse Ox 10/29/19 17:00 97.3 F L 61 13 177/55 96 10/29/19 09:00 87 20 10/29/19 07:30 98.0 F 87 20 167/75 93 L 10/28/19 20:05 98.2 F 88 20 136/68 96 - General General Appearance: Alert, Oriented x3, Cooperative, No acute distress Limitations: No limitations - Head Head exam: Atraumatic, Normal inspection - Eye Eye exam: Normal appearance, PERRL. negative: Conjunctival injection, Scleral icterus - ENT ENT exam: Normal exam, Mucous membranes moist Ear exam: Normal external inspection Nasal Exam: Normal inspection Mouth exam: Normal external inspection - Neck Neck exam: Normal inspection - Respiratory Respiratory exam: Normal lung sounds bilaterally. negative: Respiratory distress - Cardiovascular Cardiovascular Exam: Regular rate, Normal rhythm, Normal heart sounds - GI/Abdominal GI/Abdominal exam: Soft, Normal bowel sounds (no further tympanny ), Tenderness (RLQ), Other (The abdomen is obese but very soft). negative: Distended, Guarding, Rebound, Rigid - Rectal Rectal exam: Deferred - exam: Deferred - Extremities Extremities exam: Normal inspection. negative: Pedal edema (trace BLE ), Tenderness - Back Back exam: Denies: CVA tenderness (R), CVA tenderness (L) - Neurological Neurological exam: Alert, Oriented X3 - Psychiatric Psychiatric exam: Normal affect, Normal mood - Skin Skin exam: Dry, Intact, Normal color, Warm Assessment and Plan - Assessment and Plan (1) Diverticulitis Current Visit: Yes Status: Acute Base Code: K57.92 - DVTRCLI OF INTEST, PART UNSP, W/O PERF OR ABSCESS W/O BLEED Comment: 10/29/19 - CT abdomen/pelvis- mild signoid diverticulitis - Unable to tolerate PO antibiotic therapy in ED - Flagyl and Cipro IV until she is able to tolerate PO, plan to transition to PO in the am and discharge home to complete regimen - Antiemetics and pain control - Tolerating bland per patient request, nausea has improved - SL IV and resume Lasix - WIll need colonoscopy as outpatient (2) Vomiting Current Visit: Yes Status: Acute Qualifiers: Vomiting type: unspecified Base Code: R11.10 - VOMITING, UNSPECIFIED Comment: 10/29/19 - No vomiting since admit - Tolerating bland diet (3) DVT prophylaxis Current Visit: Yes Status: Acute Base Code: [id number] - Comment: 10/29/19- Patient was at moderate risk for DVT with age and restricted mobility -lovenox 40mg SQ was given daily for prophylaxis (4) Full code status Current Visit: No Status: Acute Base Code: Z78.9 - OTHER SPECIFIED HEALTH STATUS Results - Labs Result Diagrams: 10/27/19 19:55 10/27/19 19:55 Labs Last 24 Hours: Laboratory Results - last 24 hr 10/28/19 13:17 Stl C.difficile Tox A&B Not detected DVT/PE Assessment - Risk for VTE Risk for VTE: No Risk Level: Moderate Risk Assessment Date: 10/28/19 Risk Assessment Time: 08:30 VTE Orders Placed or Will Be Placed: Yes - Active Medicaitons Current Medications: Current Medications Acetaminophen (Tylenol 325mg) 650 mg PO Q6H PRN PRN Reason: PAIN - MILD(1-4)/FEVER Last Admin: 10/28/19 22:24 Dose: 650 mg Documented by: Albuterol Sulfate (Ventolin Hfa) 1 puff INH Q4H PRN PRN Reason: DIFFICULTY IN BREATHING Albuterol Sulfate (Ventolin Hfa) 2 puff INH Q4H PRN PRN Reason: DIFFICULTY IN BREATHING Albuterol/Ipratropium (Duoneb) 3 ml INH Q4H PRN PRN Reason: WHEEZING Enoxaparin Sodium (Lovenox) 40 mg SQ DAILY [facility] Last Admin: 10/29/19 10:59 Dose: 40 mg Documented by: Furosemide (Lasix) 20 mg PO DAILY [facility] Last Admin: 10/29/19 12:21 Dose: 20 mg Documented by: Ciprofloxacin Lactate (Cipro) 400 mg in 200 mls @ 200 mls/hr IVPB Q12H [facility] Stop: 11/02/19 21:01 Last Infusion: 10/29/19 14:23 Dose: Infused Documented by: Metronidazole/Sodium Chloride (Flagyl) 500 mg in 100 mls @ 100 mls/hr IVPB 0000,0800,1600 [facility] Stop: 11/02/19 00:31 Last Infusion: 10/29/19 18:12 Dose: Infused Documented by: Sodium Chloride () 1,000 mls @ 125 mls/hr IV .Q8H PRN PRN Reason: LARGE VOLUME IV Last Infusion: 10/29/19 18:19 Dose: Infused Documented by: Ketorolac Tromethamine (Toradol) 30 mg IVP Q8H PRN PRN Reason: PAIN - MILD TO MODERATE (1-7) Last Admin: 10/29/19 11:06 Dose: 30 mg Documented by: Lisinopril (Zestril) 2.5 mg PO DAILY [facility] Last Admin: 10/29/19 11:00 Dose: 2.5 mg Documented by: Metoprolol Succinate (Toprol Xl) 25 mg PO DAILY [facility] Last Admin: 10/29/19 11:00 Dose: 25 mg Documented by: Morphine Sulfate (Morphine Sulfate) 5 mg IVP Q8H PRN PRN Reason: PAIN - MILD (1-4) Stop: 11/03/19 22:54 Ondansetron HCl (Zofran) 4 mg IVP Q4H PRN PRN Reason: NAUSEA AMI Plan - Labs Result Diagrams: 10/27/19 19:55 10/27/19 19:55
[2019-10-30] MEDS: METRONIDAZOLE IVPB 500 MG/100 ML BAG IVPB SCH ×2 (00:25→08:01)
[2019-10-30 06:38] LABS: ABSOLUTE NEUTROPHIL COUNT 6.21; BASO % 0.2 % (0-6); EOS % 3.3 % (0-6); GRAN % 62.9 % (47-80); HEMATOCRIT 36.6 % (35.0-47.0); LYMPH % 24.2 % (16-45); MEAN CELL VOLUME 83.4 fl (81-97); MEAN CORPUSCULAR HGB CONC 30.1 g/dl (32-36); MEAN PLATELET VOLUME 9.5 fl (7.4-10.4); MONO % 9.4 % (0-9); PLATELET COUNT 289 K/uL (130-400); RED BLOOD COUNT 4.39 M/uL (3.80-5.40); RED CELL DISTRIBUTION WIDTH 17.8 % (11.5-14.5); WHITE BLOOD COUNT W/O DIFF 9.9 K/uL (4.2-12.2)
[2019-10-30 06:57] LABS: ALB/GLOB RATIO 1.1 (1.1-1.8); ALBUMIN 3.1 g/dL (4.0-5.0); BILIRUBIN,TOTAL 0.2 mg/dL (0.2-1.0); CREATININE 1.2 mg/dL (0.5-0.9); TOTAL PROTEIN 5.9 g/dL (6.6-8.7)
[2019-10-30] MEDS: CIPROFLOXACIN LACTATE/D5W 400 MG/200 ML BAG IVPB SCH (09:12)
[2019-10-30] MEDS: LISINOPRIL 5 MG TABLET PO SCH (09:13)
[2019-10-30] MEDS: METOPROLOL SUCC 25 MG TAB.ER PO SCH (09:14)
[2019-10-30] MEDS: ENOXAPARIN 40 MG/0.4 ML SYR SQ SCH (09:15)
[2019-10-30] MEDS: FUROSEMIDE 20 MG TABLET PO SCH (09:15)
--- NOTE | 2019-10-30 10:36 | Discharge Summary ---
Providers Discharge Summary Date: 10/30/19 Date of admission: 10/27/19 22:37 Expected Date of Discharge: 10/30/19 Attending physician: EMILY MELÉNDEZ Primary care physician: KATIE PORRAS Physical Exam - Vital Signs Vital Signs: Vital Signs - Last 24 Hrs Temp Pulse Resp BP Pulse Ox 10/30/19 09:00 18 10/30/19 07:45 98.4 F 64 20 149/98 96 10/30/19 00:37 97.8 F 65 20 161/82 97 10/29/19 17:00 97.3 F L 61 13 177/55 96 - General General Appearance: Alert, Oriented x3, Cooperative, No acute distress Limitations: No limitations - Head Head exam: Atraumatic, Normal inspection - Eye Eye exam: Normal appearance, PERRL. negative: Conjunctival injection, Scleral icterus - ENT ENT exam: Normal exam, Mucous membranes moist Ear exam: Normal external inspection Nasal Exam: Normal inspection Mouth exam: Normal external inspection - Neck Neck exam: Normal inspection - Respiratory Respiratory exam: Normal lung sounds bilaterally. negative: Respiratory distress - Cardiovascular Cardiovascular Exam: Regular rate, Normal rhythm, Normal heart sounds - GI/Abdominal GI/Abdominal exam: Soft, Normal bowel sounds (no further tympanny ), Other (The abdomen is obese but very soft). negative: Distended, Guarding, Rebound, Rigid, Tenderness - Rectal Rectal exam: Deferred - exam: Deferred - Extremities Extremities exam: Normal inspection. negative: Pedal edema (trace BLE ), Tenderness - Back Back exam: Denies: CVA tenderness (R), CVA tenderness (L) - Neurological Neurological exam: Alert, Oriented X3 - Psychiatric Psychiatric exam: Normal affect, Normal mood - Skin Skin exam: Dry, Intact, Normal color, Warm Hospitalization - Hospitalization Admission Diagnosis: Acute sigmoid diverticulitis with vomiting - Problem List/Discharge Diagnosis (1) Diverticulitis Current Visit: Yes Status: Acute Base Code: K57.92 - DVTRCLI OF INTEST, PART UNSP, W/O PERF OR ABSCESS W/O BLEED Comment: 10/30/19 - CT abdomen/pelvis- mild signoid diverticulitis - Unable to tolerate PO antibiotic therapy in ED - Flagyl and Cipro IV until she is able to tolerate PO, plan to transition to PO in the am and discharge home to complete regimen - Antiemetics and pain control - Tolerating bland per patient request, nausea has improved - SL IV and resume Lasix - WIll need colonoscopy as outpatient (2) Vomiting Current Visit: Yes Status: Acute Discharge Diagnosis: Vomiting type: unspecified Base Code: R11.10 - VOMITING, UNSPECIFIED Comment: 10/30/19 - No vomiting since admit - Tolerating bland diet (3) DVT prophylaxis Current Visit: Yes Status: Acute Base Code: KKS8727 - Comment: 10/30/19- Patient was at moderate risk for DVT with age and restricted mobility -lovenox 40mg SQ was given daily for prophylaxis (4) Full code status Current Visit: Yes Status: Acute Base Code: Z78.9 - OTHER SPECIFIED HEALTH STATUS - Hospitalization Course Disposition: Home, Self-Care Hospital Course: 59 yo female presents with abdominal pain for about the last 6 months. She reports it seemed to have worsened about 3 months ago and then again a month ago. She has had a month of diarrhea. She has pain over the entire abdomen. No fever. She has nausea. She has vomited but rarely. The diarrhea is non bloody. She did see her doctor and was told it was diverticulitis and was treated with oral antibiotics on 2 different occasions over the last 3 weeks. She went to her PCP office today to reeval of unresolved diarrhea and abdominal pain, she was advised to go to ER for possible IV antibiotics. She has never had a colonoscopy and reports her PCP wanted her to schedule one due to chronic GI symptoms. CT abdomen/pelvis showed mild sigmoid diverticulitis and was a good candidate for outpatient antibiotic treatment, just before discharge from ED she began vomiting and unable to tolerate PO intake. She will be admitted for IV antibiotics, antiemetics and clear liquid diet until she is able to tolerate PO intake, then plan for discharge home for the remainder of PO treatment regimen PCP: Dr Porras PAST MEDICAL/SURGICAL HISTORY Past Surgical History gallbladder hysterectomy appendectomy PMH - Respiratory Hx Respiratory Disorders Yes Hx Asthma Yes Hx Bronchitis Yes Hx Chronic Obstructive Yes Pulmonary Disease (COPD) Hx Dyspnea Yes Hx Pneumonia Yes PMH - Cardiovascular Hx Cardiovascular Disorders No Hx Hypertension Yes PMH - Neuro Hx Neurological Disorders No PMH - GI Hx Gastrointestinal Disorders No Hx Abdominal Pain Yes Hx Diverticulitis Yes PMH - Hx Genitourinary Disorders No LMP (females 10-50) Unknown Patient No PMH - Endocrine Hx Endocrine Disorders No PMH - Musculoskeletal Hx Musculoskeletal Disorders Yes PMH - Psych Hx Psychiatric Problems Yes Hx Anxiety Yes Hx Depression Yes PMH - Hematology/Oncology Hx Hematology/Oncology Yes Disorders Hx Cancer Yes: Uterine Laboratory Results WBC 9.8 K/uL (4.2-12.2) 10/27/19 19:55 RBC 5.28 M/uL (3.80-5.40) 10/27/19 19:55 Hgb 13.4 gm/dl (11.6-16.0) 10/27/19 19:55 Hct 43.5 % (35.0-47.0) 10/27/19 19:55 MCV 82.4 fl (81-97) 10/27/19 19:55 MCH 25.4 pg (27-33) L 10/27/19 19:55 MCHC 30.8 g/dl (32-36) L 10/27/19 19:55 RDW 18.3 % (11.5-14.5) H 10/27/19 19:55 Plt Count 366 K/uL (130-400) 10/27/19 19:55 MPV 9.5 fl (7.4-10.4) 10/27/19 19:55 Gran % 68.9 % (47-80) 10/27/19 19:55 Lymphocytes % 21.6 % (16-45) 10/27/19 19:55 Monocytes % 7.0 % (0-9) 10/27/19 19:55 Eosinophils % 2.4 % (0-6) 10/27/19 19:55 Basophils % 0.1 % (0-6) 10/27/19 19:55 Absolute Neutrophils 6.76 10/27/19 19:55 Sodium 141 mmol/L (136-145) 10/27/19 19:55 Potassium 3.9 mmol/L (3.4-4.5) 10/27/19 19:55 Chloride 101 mmol/L (98-107) 10/27/19 19:55 Carbon Dioxide 25.0 mmol/L (22-29) 10/27/19 19:55 Anion Gap 15.0 (7-16) 10/27/19 19:55 BUN 19 mg/dL (6-20) 10/27/19 19:55 Creatinine 1.2 mg/dL (0.5-0.9) H 10/27/19 19:55 Estimated GFR 49 mL/min 10/27/19 19:55 Random Glucose 239 mg/dL (74-109) H 10/27/19 19:55 Calcium 9.1 mg/dL (8.6-10.0) 10/27/19 19:55 Total Bilirubin < 0.20 mg/dL (0.2-1.0) L 10/27/19 19:55 AST 24 U/L (10.0-35.0) 10/27/19 19:55 ALT 30 U/L (<33) 10/27/19 19:55 Alkaline Phosphatase 87 U/L (35-104) 10/27/19 19:55 Total Protein 7.0 g/dL (6.6-8.7) 10/27/19 19:55 Albumin 3.8 g/dL (4.0-5.0) L 10/27/19 19:55 Globulin 3.2 gm/dL (1.4-4.8) 10/27/19 19:55 Albumin/Globulin Ratio 1.2 (1.1-1.8) 10/27/19 19:55 Lipase 17 U/L (13-60) 10/27/19 19:55 Urine Color Yellow 10/27/19 22:34 Urine Appearance Clear 10/27/19 22:34 Urine pH 5.5 (5.0-8.0) 10/27/19 22:34 Ur Specific [place] 1.010 (1.002-1.030) 10/27/19 22:34 Urine Protein Negative (NEGATIVE) 10/27/19 22:34 Urine Glucose (UA) Negative (NEGATIVE) 10/27/19 22:34 Urine Ketones Negative (NEGATIVE) 10/27/19 22:34 Urine Blood Negative (NEGATIVE) 10/27/19 22:34 Urine Nitrite Negative (NEGATIVE) 10/27/19 22:34 Urine Bilirubin Negative (NEGATIVE) 10/27/19 22:34 Urine Urobilinogen 0.2 E.U./dL (0.20 - 1.00) 10/27/19 22:34 Ur Leukocyte Esterase Negative (NEGATIVE) 10/27/19 22:34 Stool Occult Blood Cancelled 10/27/19 22:34 Stool for White Cells Cancelled 10/27/19 20:00 Rotavirus Antigen Cancelled 10/27/19 19:40 Stl C.difficile Tox A&B Cancelled 10/27/19 19:40 Cryptosporid parvum Ag Cancelled 10/27/19 19:40 Giardia lamblia Ag Cancelled 10/27/19 19:40 Vital Signs - Last 24 Hrs Temp Pulse Pulse Resp BP BP BP 10/28/19 06:24 97.7 F 86 16 141/48 10/27/19 22:53 97.8 F 87 20 148/89 10/27/19 21:55 95 H 18 126/79 10/27/19 19:40 98.3 F 111 H 24 117/80 Pulse Ox 10/28/19 06:24 96 10/27/19 22:53 94 L 10/27/19 21:55 94 L 10/27/19 19:40 95 10/30/19- Hospital course unremarkable. Tolerated PO intake with only mild nausea which resolved by the day of discharge. She continued to have frequent loose stools which have been unchanged for the past 6 months, stool studies to date have been negative. She was made aware of concerning findings on abdomen/pelvis CT to sigmoid colon (wall thickening) and will need to have outpatient colonoscopy [facility]. Will complete total 14 day antibiotic therapy due to previous failed outpatient treatment. Discharged in stable condition. Procedures: Imaging and X-Rays 10/27/19 19:40 ABDOMEN/PELVIS W CONTRAST [CT] Stat Abnormal Labs: Abnormal Lab Results 10/27/19 10/27/19 10/30/19 Range/Units 19:55 19:55 06:30 Hgb 11.0 L (11.6-16.0) gm/dl MCH 25.4 L 25.0 L (27-33) pg MCHC 30.8 L 30.1 L (32-36) g/dl RDW 18.3 H 17.8 H (11.5-14.5) % Monocytes % 9.4 H (0-9) % Creatinine 1.2 H (0.5-0.9) mg/dL Random Glucose 239 H (74-109) mg/dL Total Bilirubin < 0.20 L (0.2-1.0) mg/dL Total Protein (6.6-8.7) g/dL Albumin 3.8 L (4.0-5.0) g/dL 10/30/19 Range/Units 06:30 Hgb (11.6-16.0) gm/dl MCH (27-33) pg MCHC (32-36) g/dl RDW (11.5-14.5) % Monocytes % (0-9) % Creatinine 1.2 H (0.5-0.9) mg/dL Random Glucose (74-109) mg/dL Total Bilirubin (0.2-1.0) mg/dL Total Protein 5.9 L (6.6-8.7) g/dL Albumin 3.1 L (4.0-5.0) g/dL Condition at Discharge: (2) Stable Discharge Medications - Discharge Medications Prescriptions: Ciprofloxacin HCl [Cipro] 500 mg PO Q12HR 11 Days #22 tablet Fluconazole [Diflucan] 150 mg PO ONCE PRN 1 Days #1 tablet PRN Reason: yeast Metronidazole [Flagyl] 500 mg PO Q8H 11 Days #33 tablet Ondansetron [Zofran Odt] 4 mg PO Q8H PRN #10 tab.rapdis PRN Reason: Nausea Home Medications: Ambulatory Orders Albuterol Sulfate [Proair Hfa] 1 - 2 puff IH .EVERY 4-6 HOURS PRN #1 inhaler 07/23/16 [Last Taken Unknown] Furosemide [Lasix] 20 mg PO DAILY #30 tablet 07/23/16 [Last Taken 10/26/19] Ipratropium/Albuterol [Duoneb] 3 ml IH Q4H #30 ampul.neb 07/23/16 [Last Taken Unknown] Lisinopril [Zestril] 2.5 mg PO DAILY #30 tablet 07/23/16 [Last Taken 10/26/19] Metoprolol Succinate 25 mg PO DAILY 04/11/18 [Last Taken 10/26/19] Ciprofloxacin HCl [Cipro] 500 mg PO Q12HR 11 Days #22 tablet 10/30/19 [Last Taken Unknown] Fluconazole [Diflucan] 150 mg PO ONCE PRN 1 Days #1 tablet 10/30/19 [Last Taken Unknown] Furosemide [Lasix] 20 mg PO DAILY tablet 10/30/19 [Last Taken Unknown] Metronidazole [Flagyl] 500 mg PO Q8H 11 Days #33 tablet 10/30/19 [Last Taken Unknown] Ondansetron [Zofran Odt] 4 mg PO Q8H PRN #10 tab.rapdis 10/30/19 [Last Taken Unknown] Discharge Plan - Discharge Instructions Activity at Discharge: Increase Activity as Tolerated Diet at Discharge: Advance to Usual Diet (Follow low residue diet) Instructions: Diverticulitis (ED) Additional Instructions: Review this ER visit and the tests performed with your family doctor Call your doctor for the next available follow up appointment Return to the ER for a recheck immediately if worse, any new concerns or questions Take the prescriptions provided as directed Follow up with PCP in 1 week Recommend colonoscopy [facility] for prolonged diarrhea and inflammatory changes to sigmoid colon Follow diverticulitis-friendly diet Quality Measures - Quality Measures Quality Measures: Documentation of Current Medications in Medical Record, Screening for High Blood Pressure and F/U Documented - Current Medications Quality Measure: Measure #130: Documentation of Current Medications Documentation of Current Medications: <Current Medications Documented/Reviewed> [G8427] - Blood Pressure Screening Quality Measure: Screening for High Blood Pressure and Follow-Up Documented Does Patient Have Any of the Following: Active Dx of HTN Blood Pressure Classification: Pre-Hypertensive BP Reading Systolic Measurement: 117 Diastolic Measurement: 80 Screening for High Blood Pressure: Patient Exclusion, Hx of HTN [G9744] - Elder Abuse Suspicion Index EASI Reference Information: Chelo SAMS, Ant C, Jessica D, Pool M.Development and validation of a tool to assist physicians identification of elder abuse: The Elder Abuse Suspicion Index (EASI ). Journal of Elder Abuse and Neglect, 2008; 20 (3): 276-300.
== END 2019-10-30 12:45 | disposition home or self-care (01) | DRG 392 ==
LOC: ER 19:14 → MEDSURG 22:37 → OBSVTOIN 22:37
PROVIDERS: ADMIT Internal Medicine; ATTEND Internal Medicine
DX: K57.92 Diverticulitis of intestine, part unspecified, without perforation or abscess without bleeding (principal); R11.2 Nausea with vomiting, unspecified; R19.7 Diarrhea, unspecified; J44.9 Chronic obstructive pulmonary disease, unspecified; J45.909 Unspecified asthma, uncomplicated; I10 Essential (primary) hypertension; F17.210 Nicotine dependence, cigarettes, uncomplicated; Z90.49 Acquired absence of other specified parts of digestive tract; Z85.42 Personal history of malignant neoplasm of other parts of uterus; Z87.19 Personal history of other diseases of the digestive system
CPT/HCPCS: 74177; 80053; 81003; 82272; 83690; 85025; 87329; 87493; 89055; 96365; 96375; 96376; 99223; 99233; 99239; 99285; J1650; J1885; J2405; J7030